=== PATIENT | female | born 1995 ===

== ENCOUNTER → 2021-05-02 | Outpatient (CLI) | payer OTHER | END | disposition home or self-care (01) | LOC: LAB SHORT 17:39 | DX: Z34.03 Encounter for supervision of normal first pregnancy, third trimester (principal) | CPT/HCPCS: 87081; 87150 ==

== ENCOUNTER 2021-05-30 12:29 | Inpatient (IN) | payer OTHER ==
[~2021-05-30] VITALS: Ht 157.5 cm; Wt 68.0 kg
[2021-05-30 14:08] LABS: BASOPHILS ABSOLUTE AUTO 0.05 K/mm3 (0.00-0.23); BASOPHILS PERCENT AUTO 1 % (0-2); EOSINOPHILS ABSOLUTE AUTO 0.09 K/mm3 (0.00-0.68); EOSINOPHILS PERCENT AUTO 1 % (0-6); Hematocrit 37.4 % (33.0-51.0); Hemoglobin 12.7 g/dL (11.5-16.0); IMMATURE GRAN ABSOLUTE AUTO 0.08 K/mm3 (0.00-0.10); IMMATURE GRAN PERCENT AUTO 1 % (0-1); LYMPHOCYTES ABSOLUTE AUTO 1.71 K/mm3 (0.84-5.20); LYMPHOCYTES PERCENT AUTO 16 % (21-46); MONOCYTES ABSOLUTE AUTO 0.81 K/mm3 (0.16-1.47); MONOCYTES PERCENT AUTO 7 % (4-13); Mean Corpuscular HGB 30.8 pg (26.0-34.0); Mean Corpuscular Volume 91 fL (80-100); Mean Platelet Volume 9.5 fL (9.1-12.4); NEUTROPHILS PERCENT AUTO 75 % (41-73); Platelet Count 209 K/mm3 (150-400); RDW Coefficient Variation 12.5 % (11.7-14.2); Red Blood Cell Count 4.12 M/mm3 (3.80-5.20); White Blood Cell Count 11.04 K/mm3 (4.00-11.30)
[2021-05-30] MEDS ORDERED: PRENATAL TABLE1 EAC2 PO (14:11)
[2021-05-30 14:22] LABS: SARS-Cov-2 (COVID-19) PCR, MMC NEGATIVE (NEGATIVE)
--- NOTE | 2021-05-31 09:15 | NUR ---
PT RIGHT LEG STILL NUMB BBED SPONGE BATH GIVEN, NUHA CARE DONE TUCKS PADS APPLIED TO PERINIUM
--- NOTE | 2021-05-31 11:15 | NUR ---
PT UP TO SHOWER LINENS CHANGED, ASSIST WITH PERICARE
== END 2021-06-01 10:50 | disposition home or self-care (01) | DRG 807 ==
LOC: OBS 12:29 → BC 12:29 → OBS 12:43 → BC 05-31 20:21
PROVIDERS: ADMIT Obstetrics & Gynecology
PROC: 10E0XZZ Delivery of Products of Conception, External Approach (ICD-10-PCS; principal; 2021-05-31)
PROC: 3E0R3BZ Introduction of Anesthetic Agent into Spinal Canal, Percutaneous Approach (ICD-10-PCS; 2021-05-31)
PROC: 00HU33Z Insertion of Infusion Device into Spinal Canal, Percutaneous Approach (ICD-10-PCS; 2021-05-31)
DX: O69.1XX0 Labor and delivery complicated by cord around neck, with compression, not applicable or unspecified (principal); Z37.0 Single live birth; Z20.822 Contact with and (suspected) exposure to COVID-19; O71.82 Other specified trauma to perineum and vulva; Z3A.41 41 weeks gestation of pregnancy
CPT/HCPCS: 36415; 85025; 86850; 86900; 86901; A9270; J1885; J2001; J2210; J2405; J2590; J3010; J7120; U0004

== ENCOUNTER → 2021-07-24 | Outpatient (CLI) | payer OTHER ==
[~2021-07-24] MED LIST: PRENATAL TABLE1 EAC2 PO
[2021-07-26 00:07] LABS: CHLAMYDIA TRACHOMATIS, NAA Negative (Negative)
== END ==
LOC: LAB 12:09 → LAB SHORT 12:09
PROVIDERS: Obstetrics & Gynecology
DX: Z11.3 Encounter for screening for infections with a predominantly sexual mode of transmission (principal)
CPT/HCPCS: 87491; 87591

== ENCOUNTER → 2021-09-25 | Outpatient (CLI) | payer OTHER | END | disposition home or self-care (01) | LOC: LAB SHORT 14:03 | DX: D22.5 Melanocytic nevi of trunk (principal) | CPT/HCPCS: 88305 ==

== ENCOUNTER → 2023-05-15 | Outpatient (CLI) | payer OTHER ==
[2023-05-15 14:23] LABS: Source, Urine Voided
[2023-05-15 16:47] LABS: Mucus Light (0-Heavy)
[2023-05-15 16:48] LABS: Amorphous Light (0-Heavy); Bacteria Mod /hpf; Red Blood Cells, Urine 0-2 /hpf (0-2); Squamous Epithelial Cells Mod /hpf (Few)
== END | disposition home or self-care (01) ==
LOC: LAB SHORT 14:22 → LAB 14:22
PROVIDERS: Advanced Practice Midwife
DX: Z34.81 Encounter for supervision of other normal pregnancy, first trimester (principal)
CPT/HCPCS: 81015; 87086

== ENCOUNTER → 2023-09-15 | Outpatient (CLI) | payer OTHER ==
[2023-09-15 15:24] LABS: Bacterial Vaginosis PCR Negative (NEGATIVE); Candida Group, PCR NOT DETECTED (NOT DETECT)
[2023-09-15 15:25] LABS: Candida glabrata-krusei, PCR DETECTED (NOT DETECT)
== END | disposition home or self-care (01) ==
LOC: LAB SHORT 10:44 → LAB 10:44
PROVIDERS: Obstetrics & Gynecology
DX: N89.8 Other specified noninflammatory disorders of vagina (principal)
CPT/HCPCS: 87481; 87661; 87801

== ENCOUNTER 2024-01-07 06:56 | Inpatient (IN) | payer OTHER ==
[~2024-01-07] VITALS: Ht 157.5 cm; Wt 74.1 kg
[2024-01-07] VITALS (34 sets, daily range): BP systolic 91–131; BP diastolic 50–67
[2024-01-07] MEDS ORDERED: Castor Oil 59.146 ML BTL TOP SCH (07:30)
[2024-01-07] MEDS ORDERED: Lactated Ringer's 1,000 ML IV SCH ×4 (07:30→15:55)
[2024-01-07] MEDS ORDERED: Bupivacaine 0.5% HCl 5 MG/ML 30MLVIAL XX SCH (07:30)
[2024-01-07] MEDS ORDERED: Lidocaine HCl 1% 30 ML SDV XX SCH (07:30)
[2024-01-07] MEDS ORDERED: Bupivacaine HCl 2.5 MG/ML 10ML P/F Injection XX SCH (07:30)
[2024-01-07] MEDS ORDERED: FentaNYL 2mcg/ml-Bup 0.1% Epd 250 ML EPI PRN (07:30)
[2024-01-07] MEDS ORDERED: Misoprostol 200 MCG Tab PR SCH (07:30)
[2024-01-07] MEDS ORDERED: ePHEDrine Sulfate 50 MG/ML 1ML Injection XX PRN (07:30)
[2024-01-07] MEDS ORDERED: LR Oxytocin 20 Units 1,000 ML IV SCH ×4 (07:30→15:55)
[2024-01-07] MEDS ORDERED: Oxytocin 10 Unit / ML Vial IM SCH (07:30)
[2024-01-07] MEDS ORDERED: Methylergonovine Maleate 0.2MG / ML 1ML Amp IM SCH (07:30)
[2024-01-07 07:45] LABS: BASOPHILS ABSOLUTE AUTO 0.04 K/mm3 (0.00-0.23); BASOPHILS PERCENT AUTO 1 % (0-2); EOSINOPHILS ABSOLUTE AUTO 0.03 K/mm3 (0.00-0.68); EOSINOPHILS PERCENT AUTO 0 % (0-6); Hematocrit 35.6 % (33.0-51.0); IMMATURE GRAN ABSOLUTE AUTO 0.12 K/mm3 (0.00-0.10); IMMATURE GRAN PERCENT AUTO 2 % (0-1); LYMPHOCYTES PERCENT AUTO 16 % (21-46); MONOCYTES ABSOLUTE AUTO 0.68 K/mm3 (0.16-1.47); MONOCYTES PERCENT AUTO 8 % (4-13); Mean Corpuscular HGB 30.5 pg (26.0-34.0); Mean Corpuscular HGB Conc 33.7 g/dL (31.5-36.5); Mean Corpuscular Volume 90 fL (80-100); Mean Platelet Volume 9.5 fL (9.1-12.4); NEUTROPHILS ABSOLUTE AUTO 6.07 K/mm3 (1.96-9.15); NEUTROPHILS PERCENT AUTO 74 % (41-73); Platelet Count 206 K/mm3 (150-400); RDW Coefficient Variation 13.3 % (11.7-14.2); RDW Standard Deviation 44.4 fL (35.1-46.3); Red Blood Cell Count 3.94 M/mm3 (3.80-5.20); White Blood Cell Count 8.24 K/mm3 (4.00-11.30)
[2024-01-07] MEDS ORDERED: Ondansetron HCl 2 MG / ML 2ML Vial IV PRN (09:10)
[2024-01-07] MEDS ORDERED: FentaNYL Citrate 50 MCG/ML 2 ML Injection IV PRN (09:10)
[2024-01-07] MEDS ORDERED: Acetaminophen 500 MG Tab PO PRN ×2 (09:10→15:55)
[2024-01-07] MEDS ORDERED: Calcium Carbonate 500 MG Tab Chew PO PRN (09:10)
[2024-01-07] MEDS ORDERED: Benzocaine Topical Anesthetic Spray 60GM TOP PRN (15:55)
[2024-01-07] MEDS ORDERED: Docusate Sodium 100 MG Cap PO PRN (15:55)
[2024-01-07] MEDS ORDERED: Measles/Mumps/Rubella Vaccine 0.5 ML Vial SC ONE (15:55)
[2024-01-07] MEDS ORDERED: Carboprost Tromethamine 250 MCG/ML 1ML Amp IM PRN (15:55)
[2024-01-07] MEDS ORDERED: Ibuprofen 400 MG Tab PO PRN (16:00)
[2024-01-07] MEDS ORDERED: Ketorolac Tromethamine 30mg Vial IV ONE (16:00)
[2024-01-07] MEDS ORDERED: Rho(D) Immune Globulin 300 MCG / SYR IM ONE (16:00)
[2024-01-07] MEDS ORDERED: Witch Hazel/Glycerin PADS TOP PRN (16:00)
[2024-01-07] MEDS ORDERED: Ketorolac Tromethamine 30mg Vial IV PRN (16:00)
[2024-01-07] MEDS ORDERED: Methylergonovine Maleate 0.2MG / ML 1ML Amp IM PRN (16:00)
[2024-01-07] MEDS ORDERED: Lanolin Cream TOP PRN (16:00)
[2024-01-07] MEDS ORDERED: Misoprostol 200 MCG Tab PR PRN (16:00)
[2024-01-08 00:55] VITALS: BP 105/59
[2024-01-08 05:26] VITALS: BP 97/53
[2024-01-08 07:56] VITALS: BP 111/57
[2024-01-08] MEDS ORDERED: Prenatal Vit/FE Fumarate/FA 1 Tab PO SCH (09:00)
== END 2024-01-08 15:30 | disposition home or self-care (01) | DRG 807 ==
LOC: OBS 06:56 → BC 07:01 → OBS 07:11 → BC 07:12
PROVIDERS: ADMIT Obstetrics & Gynecology
PROC: 10E0XZZ Delivery of Products of Conception, External Approach (ICD-10-PCS; principal; 2024-01-07)
PROC: 0HQ9XZZ Repair Perineum Skin, External Approach (ICD-10-PCS; 2024-01-07)
PROC: 10907ZC Drainage of Amniotic Fluid, Therapeutic from Products of Conception, Via Natural or Artificial Opening (ICD-10-PCS; 2024-01-07)
PROC: 3E033VJ Introduction of Other Hormone into Peripheral Vein, Percutaneous Approach (ICD-10-PCS; 2024-01-07)
DX: O48.0 Post-term pregnancy (principal); Z37.0 Single live birth; Z3A.40 40 weeks gestation of pregnancy; O69.81X0 Labor and delivery complicated by cord around neck, without compression, not applicable or unspecified; O70.0 First degree perineal laceration during delivery
CPT/HCPCS: 36415; 51702; 85025; 86850; 86900; 86901; A9270; J1885; J2590; J7120